=== PATIENT | male | born 1990 | race Caucasian/White ===

== ENCOUNTER 2020-12-17 08:40 | Outpatient (REF) | payer OTHER, SELFPAY ==
[2020-12-17 12:15] LABS: Alanine Aminotransferase 53 U/L (0-40); Albumin Level 4.7 g/dL (3.5-5.0); Alkaline Phosphatase 85 U/L (39-117); Anion Gap 12 (12-20); Aspartate Amino Transferase 23 U/L (5-37); Bilirubin Total 0.7 mg/dL (0.0-1.0); Blood Urea Nitrogen 21 mg/dL (9-16); Calcium 9.6 mg/dL (8.4-10.2); Carbon Dioxide 28 mmol/L (22-29); Chloride 106 mmol/L (96-108); Cholesterol 216 mg/dL; Estimated Glomerular Filt Rate > 60; Glucose Fasting 88 mg/dL (60-99); HDL Cholesterol 53 mg/dL; LDL Cholesterol Calculated 146 mg/dl; Potassium 4.4 mmol/L (3.3-5.1); Sodium 142 mmol/L (135-145); Total Protein 7.4 g/dL (6.5-8.0); Triglycerides 87 mg/dL
[2020-12-17 12:25] LABS: TSH reflex Free T4 0.41 uIU/mL (0.32-4.0)
== END 2020-12-17 08:41 | disposition home or self-care (01) ==
LOC: HO.HMGCLDS 08:40
PROVIDERS: PCP Nurse Practitioner Family; Visit Provider Nurse Practitioner Family
DX: Z00.00 Encounter for general adult medical examination without abnormal findings (principal); R74.8 Abnormal levels of other serum enzymes
CPT/HCPCS: 36415; 80053; 80061; 84443

== ENCOUNTER 2021-12-22 08:45 | Outpatient (REF) | payer OTHER, SELFPAY ==
[2021-12-22 11:29] LABS: MANUAL DIFF FLAG NO
[2021-12-22 11:30] LABS: Appearance Urine CLEAR; Color Urine YELLOW; Glucose Urine UA NEG (NEG); Leukocyte Esterase Urine NEG (NEG); Nitrite Urine NEG (NEG); PH 7.5 (5.0-8.0); Specific Gravity - Urine 1.015 (1.005-1.025); Urine Blood NEG (NEG); Urine Ketones NEG (NEG); Urine Protein NEG (NEG-TRACE)
[2021-12-22 11:41] LABS: Basophils Percent Auto 0.8 % (0-2); Eosinophils Absolute Auto 0.1 X10*3/uL (0.0-0.4); Eosinophils Percent Auto 1.4 % (0-4); Hematocrit 45.9 % (42.0-52.0); Hemoglobin 15.3 g/dl (14.0-18.0); Imm Gran Abs Auto 0.02 X10*3/uL (0.00-0.03); Imm Gran Pct Auto 0.4 % (0.0-0.4); Lymphocytes Absolute Auto 1.5 X10*3/uL (1.2-4.9); Mean Corpuscular HGB Conc 33.3 g/dl (31.0-36.0); Mean Corpuscular Hemoglobin 29.2 pg (27.0-33.0); Mean Corpuscular Volume 87.6 fL (80.0-98.0); Mean Platelet Volume 12.1 fL (9.4-12.4); Monocytes Absolute Auto 0.5 X10*3/uL (0.1-1.2); Monocytes Percent Auto 10.3 % (2-11); Neutrophils Absolute Auto 2.9 x10*3/uL (2.0-8.3); Neutrophils Percent Auto 57.1 % (45-73); Platelet Count 249 X10*3/uL (160-400); Red Blood Count 5.24 X10*6/uL (4.60-5.80); Red Cell Distribution Width 12.5 % (11.0-16.0)
[2021-12-22 12:18] LABS: Alanine Aminotransferase 91 U/L (0-40); Albumin Level 4.8 g/dL (3.5-5.0); Alkaline Phosphatase 83 U/L (39-117); Anion Gap 11 (12-20); Aspartate Amino Transferase 40 U/L (5-37); Bilirubin Total 0.6 mg/dL (0.0-1.0); Blood Urea Nitrogen 17 mg/dL (9-16); Calcium 9.8 mg/dL (8.4-10.2); Carbon Dioxide 28 mmol/L (22-29); Chloride 106 mmol/L (96-108); Cholesterol 230 mg/dL; Estimated Glomerular Filt Rate > 60; Glucose Fasting 102 mg/dL (60-99); HDL Cholesterol 55 mg/dL; LDL Cholesterol Calculated 158 mg/dl; Potassium 4.6 mmol/L (3.3-5.1); Sodium 140 mmol/L (135-145); Total Protein 7.4 g/dL (6.5-8.0); Triglycerides 88 mg/dL
[2021-12-22 12:29] LABS: TSH reflex Free T4 0.08 uIU/mL (0.32-4.0)
== END 2021-12-22 08:46 | disposition home or self-care (01) ==
LOC: HO.HMGCLDS 08:45
PROVIDERS: PCP Nurse Practitioner Family; Visit Provider Nurse Practitioner Family
DX: Z00.00 Encounter for general adult medical examination without abnormal findings (principal)
CPT/HCPCS: 36415; 80053; 80061; 81003; 84439; 84443; 85025

== ENCOUNTER 2022-03-14 14:16 | Outpatient (REF) | payer OTHER, SELFPAY ==
--- NOTE | ~2022-03-14 | XR_ITS ---
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 M46.1 - Sacroiliitis, not elsewhere classified COMPARISON: None TECHNIQUE: The lumbar spine is imaged in 5 views: AP, lateral, bilateral oblique, and lateral view coned to lumbosacral junction. The pelvis is imaged in AP view. FINDINGS: Lumbar spine: Normal lumbar segmentation with 5 nonrib-bearing lumbar vertebrae of normal height. There is mild straightening of the lumbar lordosis. No lumbar vertebral compression, spondylolisthesis, spondylolysis, or destructive process. There is mild disc narrowing L4-L5 and L5-S1. No erosive changes. The visualized sacrum is unremarkable. Pelvis: No fracture or dislocation or destructive process. Normal bony mineralization. The SI joints appear symmetric. No erosive change or subchondral sclerosis. Pubis and hips are unremarkable. There are scattered calcified phleboliths in the pelvis. Bowel gas unremarkable. XR/XR pelvis 1-2V IMPRESSION: -Mild disc narrowing L4-L5 and L5-S1. -Unremarkable pelvis.
--- NOTE | ~2022-03-14 | XR_ITS ---
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 M46.1 - Sacroiliitis, not elsewhere classified COMPARISON: None TECHNIQUE: The lumbar spine is imaged in 5 views: AP, lateral, bilateral oblique, and lateral view coned to lumbosacral junction. The pelvis is imaged in AP view. FINDINGS: Lumbar spine: Normal lumbar segmentation with 5 nonrib-bearing lumbar vertebrae of normal height. There is mild straightening of the lumbar lordosis. No lumbar vertebral compression, spondylolisthesis, spondylolysis, or destructive process. There is mild disc narrowing L4-L5 and L5-S1. No erosive changes. The visualized sacrum is unremarkable. Pelvis: No fracture or dislocation or destructive process. Normal bony mineralization. The SI joints appear symmetric. No erosive change or subchondral sclerosis. Pubis and hips are unremarkable. There are scattered calcified phleboliths in the pelvis. Bowel gas unremarkable. XR/XR lumbar spine 4V min IMPRESSION: -Mild disc narrowing L4-L5 and L5-S1. -Unremarkable pelvis.
== END 2022-03-14 14:17 | disposition home or self-care (01) ==
LOC: HO.XRAY 14:16
PROVIDERS: PCP Nurse Practitioner Family; Visit Provider Anesthesiology
DX: M43.06 Spondylolysis, lumbar region (principal); M46.1 Sacroiliitis, not elsewhere classified
CPT/HCPCS: 72110; 72170

== ENCOUNTER 2022-09-16 05:19 | Emergency (ER) | payer OTHER, SELFPAY ==
--- NOTE | ~2022-09-16 | XR_ITS ---
EXAMINATION: XR FINGER, LEFT CLINICAL INFORMATION: Third finger post reduction. COMPARISON: 09/16/2022 TECHNIQUE: Three views of the left hand third digit. FINDINGS: Reduction of the prior proximal interphalangeal joint dislocation with appropriate alignment. There is a 0.2 cm ossific fragment along the palmar aspect of the base of the middle phalanx, with uncertain donor site. Additional tiny ossific density noted at the dorsal aspect of the joint as well. Prominent soft tissue swelling. XR/XR finger LT min 2V IMPRESSION: 1. Reduction of the prior proximal interphalangeal joint dislocation with appropriate alignment. 2. Small ossific fragments at the palmar and dorsal aspect of the base of the middle phalanx.
--- NOTE | ~2022-09-16 | XR_ITS ---
EXAMINATION: XR HAND, LEFT CLINICAL INFORMATION: Fall. Finger dislocation. COMPARISON: None available. TECHNIQUE: PA, lateral, and oblique views of the left hand. FINDINGS: Dislocation at the third digit proximal interphalangeal joint. Dorsal positioning of the middle phalanx in relation to the proximal phalanx. There could be a small associated fracture. Soft tissue swelling present. Remaining joint spaces are maintained. XR/XR hand LT min 3V IMPRESSION: Dislocation at the third digit proximal interphalangeal joint. There could be a small associated fracture.
[2022-09-16 05:33] VITALS: BP 147/84; PULSE 56; RESP 18; TEMP 36.4; O2SAT 99; BMI 28.8
--- NOTE | 2022-09-16 05:50 | ED.EXTPRO ---
HPI - Extremity Problem General Chief complaint: Extremity Injury, Upper Stated complaint: Broke left Middle Finger? Time Seen by Provider: 09/16/22 05:50 Source: patient Mode of arrival: ambulatory Limitations: no limitations History of Present Illness HPI Narrative: Patient complaining of pain left middle finger with obvious deformity after his left on stairs and tried to catch himself with his left hand no other injury Related Data Previous Rx's Medication Instructions Recorded levothyroxine 175 mcg tablet 175 mcg PO DAILY #90 tabs 09/13/22 ibuprofen 600 mg tablet 600 mg PO Q6H PRN fever or pain 09/16/22 #30 tabs Allergies Allergy/AdvReac Type Severity Reaction Status Date / Time No Known Allergies Allergy Verified 09/16/22 05:49 [No Known Allergies*] Review of Systems Review of Systems: Yes all other systems are reviewed and are negative PMFSH Past Medical History Medical History Hypothyroid Tinea versicolor Surgical History H/O thyroidectomy History of tonsillectomy Family History Family History Mother COPD (chronic obstructive pulmonary disease) Smoker Alcoholic Bipolar 1 disorder Substance use disorder Mental health disorder Father No problems noted. Social History Social History Housing: House Alcohol intake: current Alcohol intake frequency: a few times a month Patient Tobacco Use Status: Never used Tobacco Smoked in Last 30 Days: No e-Cigarette/Vaping Use: Never Used Second Hand Smoke Exposure: No Use of substances other than those prescribed or required for medical reasons: No Advance Directives: No Advance Directives Information Provided: Yes service: No Current occupational status: employed Current occupation: teacher Current occupational exposures/hazards: Yes Cognitive needs: No Hearing needs: No Vision needs: No Physical Exam Vital Signs: Vital Signs: Last Vital Signs Temp 97.6 F 09/16/22 05:33 Pulse 56 09/16/22 05:33 Resp 18 09/16/22 05:33 BP 147/84 H 09/16/22 05:33 Pulse Ox 99 09/16/22 05:33 O2 Del Method Room Air 09/16/22 05:33 BMI result Body Mass Index 28.8 Extrem: Hand/finger images: 1. Obvious deformity deformity of dislocation neurovascular intact Medications Administered Discontinued Medications Generic Name Dose Route Start Last Admin Trade Name Freq PRN Reason Stop Dose Admin Ibuprofen 600 mg 09/16/22 05:53 09/16/22 05:59 Ibuprofen 600 Mg Tablet PO 09/16/22 05:54 600 mg ONCE ONE Administration Lidocaine HCl 2 ml 09/16/22 06:25 09/16/22 06:40 Lidocaine Hcl 1 % Mpf 2 Ml Vial INFILTRATI 09/16/22 06:26 2 ml ONCE ONE Administration Procedures Orthopedic Joint Reduction Joint #1: Time Out Performed: Yes Joint Reduction Location: finger (3rd finger) Analgesia: hematoma block Local Anesthesia: lidocaine 1% Amount of anesthesic used (mL): 2 Technique used: traction/counter-traction Post-reduction neuro exam: intact Post-reduction vascular: intact Post Reduction X-Ray Obtained: Yes Post Reduction X-Ray Results: reduced Splint Applied: Yes Patient Tolerated Procedure: well Discharge Plan Discharge Clinical Impression: Finger dislocation Patient Disposition: Home, Self-Care Instructions: Finger Dislocation (ED) Additional Instructions: wear the finger splint for support till heals completety Prescriptions: New ibuprofen 600 mg tablet 600 mg PO Q6H PRN (Reason: fever or pain) Qty: 30 0RF No Action levothyroxine 175 mcg tablet 175 mcg PO DAILY Qty: 90 1RF
[2022-09-16] MEDS: Ibuprofen 600 MG TABLET PO (05:59)
[2022-09-16] MEDS: Lidocaine HCl 1 % MPF 2 ML VIAL INFILTRATI (06:40)
--- NOTE | 2022-09-16 07:08 | PC.NURSE ---
Pt. finger relocated by MD. Pt. tolerated procedure well. Pt. subsequently splinted and wrapped and d/c'd to home.
== END 2022-09-16 07:10 | disposition home or self-care (01) ==
PROVIDERS: Emergency Provider Internal Medicine
DX: S63.283A Dislocation of proximal interphalangeal joint of left middle finger, initial encounter (principal); W10.8XXA Fall (on) (from) other stairs and steps, initial encounter; Y93.9 Activity, unspecified; Y92.018 Other place in single-family (private) house as the place of occurrence of the external cause; Y99.9 Unspecified external cause status
CPT/HCPCS: 26775; 29130; 73130; 73140; 99284

== ENCOUNTER 2022-12-22 08:24 | Outpatient (REF) | payer OTHER, SELFPAY | END 2022-12-22 08:25 | disposition home or self-care (01) | LOC: HO.HMGCLDS 08:24 | PROVIDERS: PCP Nurse Practitioner Family; Visit Provider Nurse Practitioner Family | DX: E89.0 Postprocedural hypothyroidism (principal); R78.4 Finding of other drugs of addictive potential in blood | CPT/HCPCS: 36415; 84443; 86704; 86706; 86709; 86803; 87340 ==

== ENCOUNTER 2023-04-28 08:45 | Outpatient (REF) | payer BC, SELFPAY ==
[2023-04-28 11:22] LABS: Appearance Urine Clear; Color Urine Yellow; Glucose Urine UA Negative (Negative); Leukocyte Esterase Urine Negative (Negative); Nitrite Urine Negative (Negative); Specific Gravity - Urine 1.025 (1.005-1.025); Urine Blood Negative (Negative); Urine Ketones Negative (Negative); Urine Protein Negative (Neg-Trace)
[2023-04-28 11:27] LABS: MANUAL DIFF FLAG NO
[2023-04-28 11:37] LABS: Basophils Percent Auto 0.8 % (0-2); Eosinophils Absolute Auto 0.1 X10*3/uL (0.0-0.4); Eosinophils Percent Auto 1.4 % (0-4); Hematocrit 46.1 % (42.0-52.0); Hemoglobin 15.8 g/dl (14.0-18.0); Imm Gran Abs Auto 0.03 X10*3/uL (0.00-0.03); Imm Gran Pct Auto 0.6 % (0.0-0.4); Lymphocytes Absolute Auto 1.7 X10*3/uL (1.2-4.9); Lymphocytes Percent Auto 35.3 % (20-40); Mean Corpuscular HGB Conc 34.3 g/dl (31.0-36.0); Mean Corpuscular Hemoglobin 29.5 pg (27.0-33.0); Mean Platelet Volume 11.7 fL (9.4-12.4); Monocytes Absolute Auto 0.5 X10*3/uL (0.1-1.2); Monocytes Percent Auto 10.2 % (2-11); Neutrophils Absolute Auto 2.5 x10*3/uL (2.0-8.3); Neutrophils Percent Auto 51.7 % (45-73); Platelet Count 256 X10*3/uL (160-400); Red Blood Count 5.36 X10*6/uL (4.60-5.80); Red Cell Distribution Width 12.1 % (11.0-16.0); White Blood Count 4.9 X10*3/uL (4.8-10.8)
[2023-04-28 12:27] LABS: Alanine Aminotransferase 67 U/L (0-40); Albumin Level 4.5 g/dL (3.5-5.0); Alkaline Phosphatase 69 U/L (39-117); Anion Gap 9 (12-20); Aspartate Amino Transferase 33 U/L (5-37); Bilirubin Total 0.6 mg/dL (0.0-1.0); Blood Urea Nitrogen 20 mg/dL (9-16); Calcium 9.5 mg/dL (8.4-10.2); Carbon Dioxide 30 mmol/L (22-29); Chloride 105 mmol/L (96-108); Cholesterol 235 mg/dL (<200); Estimated Glomerular Filt Rate > 60; Glucose Fasting 88 mg/dL (60-99); HDL Cholesterol 47 mg/dL (>40); LDL Cholesterol Calculated 170 mg/dL (<100); Potassium 4.3 mmol/L (3.3-5.1); Sodium 140 mmol/L (135-145); Total Protein 7.2 g/dL (6.5-8.0); Triglycerides 94 mg/dL (<150)
[2023-04-28 13:01] LABS: Free T4 (Free Thyroxine) 1.05 ng/dL (0.71-1.85)
== END 2023-04-28 08:46 | disposition home or self-care (01) ==
LOC: HO.HMGCLDS 08:45
PROVIDERS: PCP Nurse Practitioner Family; Visit Provider Nurse Practitioner Family
DX: Z00.00 Encounter for general adult medical examination without abnormal findings (principal); E03.9 Hypothyroidism, unspecified; R74.8 Abnormal levels of other serum enzymes; Z13.220 Encounter for screening for lipoid disorders; Z13.0 Encounter for screening for diseases of the blood and blood-forming organs and certain disorders involving the immune mechanism
CPT/HCPCS: 36415; 80053; 80061; 81003; 84439; 84443; 85025

== ENCOUNTER 2023-08-04 08:51 | Outpatient (AMB) | payer BC, SELFPAY ==
--- NOTE | 2023-08-04 08:56 | AM.OFFWIN_ITS ---
Intake Vital Signs 08/04/23 08:57 Height 5 ft 9 in Weight 214 lb BMI 31.6 BP 138/78 Blood Pressure Location Lt brachial Position Sitting Pulse 70 Pulse Source Pulse Oximeter Temp 99.7 F Temp Source Oral Pulse Oximetry (%) 97 Intake Visit Reasons: EP Sore throat, Headache Intake Note: pt is here for c.o sore throat, headache, body aches, since monday Patient Tobacco Use Status: Never used Tobacco Allergies No Known Allergies [No Known Allergies*] Allergy (Verified 08/04/23 08:58) Do you need a note to return to daycare/school/sports/work: Yes HPI HPI Comments 2 History of Present Illness Details 32 y/o male patient who presents to walk in clinic with c/o URI symptoms since Monday. Reports fevers at home. Denies Nausea and vomiting. [facility] Medical History (Updated 05/01/23 @ 15:29 by Christine Nava MD) Hypothyroid Tinea versicolor Surgical History History of tonsillectomy H/O thyroidectomy Family History Mother COPD (chronic obstructive pulmonary disease) Smoker Alcoholic Bipolar 1 disorder Substance use disorder Mental health disorder Father No problems noted. Social History Housing: House Alcohol intake: current Alcohol intake frequency: a few times a month Patient Tobacco Use Status: Never used Tobacco e-Cigarette/Vaping Use: Never Used Second Hand Smoke Exposure: No service: No Current occupational status: employed Current occupation: teacher Current occupational exposures/hazards: Yes Cognitive needs: No Hearing needs: No Vision needs: No Review of Systems Const All systems reviewed & are unremarkable except as noted in HPI and below Physical Exam Vital Signs: Last Vital Signs Temp 99.7 F 08/04/23 08:57 Pulse 70 08/04/23 08:57 BP 138/78 08/04/23 08:57 Pulse Ox 97 08/04/23 08:57 BMI result Body Mass Index 31.6 Const General: comfortable and no acute distress HEENT Head: Yes normocephalic Ears: external ears normal and TM's normal bilaterally General nose exam: Normal nasal mucous membranes and turbinates present Face and sinus: Yes sinuses nontender Mouth: oropharynx normal and moist mucous membranes Throat: Yes tonsils normal and Yes uvula midline Resp Effort & Inspection: normal respiratory effort Auscultation: clear to auscultation bilaterally Cardio Rate: regular rate Rhythm: regular rhythm Results AMB Rapid Strep AMB Rapid Strep Negative Last Edit by Guilherme Weston CMA on 08/04/23 09 :08 Results Reviewed Results Reviewed: Laboratory Last Values Strep Scn Rapid Clinic Negative 08/04/23 09:08 Assessment & Plan Assessment & Plan (1) Acute pharyngitis: Code(s): J02.9 - Acute pharyngitis, unspecified Qualifiers: Pharyngitis/tonsillitis etiology: other specified organisms Qualified Code(s): J02.8 - Acute pharyngitis due to other specified organisms Plan: - Rest - Warm fluids - Acetaminophen for pain relief. - OTC cold/cough remedies. - Rapid Strept Negative - RTC if symptoms worse. Orders: Orders AMB Rapid Strep Screen Today Z13.9 - Encounter for screening, unspecified SARS-CoV2/FLU/RSV Today J02.8 - Acute pharyngitis due to other specified organisms Coding Level of Care Code Est Pt Level 3 (85772) Diagnoses Acute pharyngitis due to other specified organisms J02.8 Pharyngitis/tonsillitis etiology: other specified organisms Time Spent (min) 15
[2023-08-04 08:57] VITALS: BP 138/78; PULSE 70; TEMP 37.6; O2SAT 97; BMI 31.6
== END 2023-08-04 09:13 | disposition home or self-care (01) ==
PROVIDERS: PCP Nurse Practitioner Family; Visit Provider Nurse Practitioner Family
DX: J02.8 Acute pharyngitis due to other specified organisms (principal)
CPT/HCPCS: 87880; 99213

== ENCOUNTER 2023-08-04 12:24 | Outpatient (REF) | payer BC, SELFPAY ==
[2023-08-04 13:10] LABS: Influenza A PCR NEGATIVE (Negative); Influenza B PCR NEGATIVE (Negative); Resp Syncy Virus RNA Qual PCR NEGATIVE (Negative); SARS COV2 PCR INHOUSE NEGATIVE (Negative)
== END 2023-08-04 12:25 | disposition home or self-care (01) ==
LOC: HO.LNP 12:24
PROVIDERS: Visit Provider Nurse Practitioner Family
DX: Z11.52 Encounter for screening for COVID-19 (principal); Z20.822 Contact with and (suspected) exposure to COVID-19; J02.8 Acute pharyngitis due to other specified organisms
CPT/HCPCS: 0241U

== ENCOUNTER 2024-01-01 10:17 | Outpatient (AMB) | payer BC, SELFPAY ==
--- NOTE | 2024-01-01 10:25 | MHC.PC.OV ---
Vital Signs 01/01/24 10:30 Height 5 ft 9 in Weight 226 lb BMI 33.4 BP 116/74 Blood Pressure Location Rt brachial Position Sitting Pulse 62 Pulse Source Pulse Oximeter Pulse Oximetry (%) 98 Oxygen Delivery Method Room Air Intake Visit Reasons: PE Intake Note: Patient here for physical exam. Allergies No Known Allergies [No Known Allergies*] Allergy (Verified 01/01/24 10:31) Tobacco use date assessed: 01/01/24 Dental Screening Dental Screen Date: 01/01/24 Did you have a dental visit in the last 12 months?: Yes Did you have a dental problem in the last 6 months where you did not have access to dental care?: No Was dental information given to patient?: Patient has dentist HPI PE HPI Details pt is here for a PE. Denies any concerns or questions PFSH Medical History Hypothyroid Tinea versicolor Surgical History History of tonsillectomy H/O thyroidectomy Family History Mother COPD (chronic obstructive pulmonary disease) Smoker Alcoholic Bipolar 1 disorder Substance use disorder Mental health disorder Father No problems noted. Social History Housing: House Alcohol intake: current Alcohol intake frequency: a few times a month Patient Tobacco Use Status: Never used Tobacco e-Cigarette/Vaping Use: Never Used Second Hand Smoke Exposure: No service: No Current occupational status: employed Current occupation: teacher Current occupational exposures/hazards: Yes Cognitive needs: No Hearing needs: No Vision needs: No Questionnaire PHQ-9 Over the last 2 weeks, how often have you been bothered by any of the following problems? 1. Little interest or pleasure in doing things: not at all 2. Feeling down, depressed, or hopeless: not at all 3. Trouble falling or staying asleep, or sleeping too much: not at all 4. Feeling tired or having little energy: not at all 5. Poor appetite or overeating: not at all 6. Feeling bad about yourself - or that you are a failure or have let yourself or your family down: not at all 7. Trouble concentrating on things, such as reading the newspaper or watching television: not at all 8. Moving or speaking so slowly that other people could have noticed. Or the opposite - being so fidgety or restless that you have been moving around a lot more than usual: not at all 9. Thoughts that you would be better off or of hurting yourself in some way: not at all Total score: 0 Depression Screening Interpretation: Negative Depression Screening Done: Yes 21380 - PHQ-9 Billing: Yes Source: Developed by Drs. Nii Johnson, Nalini Dinh, Dionisio Arias and colleagues, with an educational bennett from [employer]. Thrive Questionnaire Date Thrive assessed: 01/01/24 I am a: Patient What is your living situation today?: I have a steady place to live Within the past 12 months, did the food you bought not last and you didn't have the money to get more?: Never true Within the past 12 months, did you worry whether your food would run out before you got money to buy more?: Never true Do you have trouble paying for medicines?: No Do you have trouble getting transportation to medical appointments?: No Do you have trouble paying your heating and electricity bill?: No Do you have trouble taking care of your child, family member or friend?: No Do you have trouble with day-to-day activities such as bathing, preparing meals, shopping, managing finances, etc.?: No Are you currently unemployed and looking for a job?: No Are you interested in more education?: No Please select the resources that you would like help with: Housing/Jail Currently or been in a relationship where the following occur: No concerns reported THRIVE Score: 0 AUDIT C Alcohol Use Questionnaire (AUDIT-C) 1. How often do you have a drink containing alcohol?: 2-4 times a month 2. How many drinks containing alcohol do you have on a typical day when you are drinking?: 1 or 2 3. How often do you have six or more drinks on one occasion?: Less than monthly Total Score: 3 NKECHI-7 AMB Questionnaire NKECHI-7 Date NKECHI - 7 assessed: 01/01/24 Feeling nervous, anxious, or on edge: 0 = Not at all Not being able to stop or control worryin = Not at all Worrying too much about different things: 0 = Not at all Trouble relaxin = Not at all Being so restless that it is hard to sit still: 0 = Not at all Becoming easily annoyed or irritable: 0 = Not at all Feeling afraid as if something awful might happen: 0 = Not at all Total NKECHI-7 score (0-4 normal; 5-9 mild; 10-14 moderate; 15-21 severe): 0 Source: Developed by Drs. Nii Johnson, Nalini Dinh, Dionisio Arias and colleagues, with an educational bennett from [employer]. NKECHI-7 Assessment Billing NKECHI-7 Assessment Tool: NKECHI-7 Assessment 08212 Review of Systems Const Denies chills and Denies fever(s) Eyes Denies blurry vision ENT Denies vertigo, Denies dizziness and Denies sore throat Card Denies chest pain at rest, Denies chest pain with activity, Denies diaphoresis, Denies dyspnea and Denies dyspnea on exertion Resp Denies cough, Denies dyspnea, Denies dyspnea on exertion and Denies wheezing GI Denies abdominal pain, Denies melena, Denies hematochezia, Denies constipation, Denies diarrhea and Denies loose stools Denies hematuria Musc Denies numbness and Denies tingling Skin/Breast Denies lesions Neuro Denies vertigo, Denies dizziness, Denies numbness and Denies tingling Psych Denies anxiety, Denies depression, Denies homicidal ideation, Denies suicidal ideation and Denies other (substance abuse) Aller/Immun Denies wheezing Physical exam (Primary Care) Vital Signs: Last Vital Signs Pulse 62 01/01/24 10:30 BP 116/74 01/01/24 10:30 Pulse Ox 98 01/01/24 10:30 Oxygen Delivery Method Room Air 01/01/24 10:30 BMI result Body Mass Index 33.4 Tobacco/Smoking Status: Tobacco use Status Tobacco use date assessed 01/01/24 01/01/24 10:33 Patient Tobacco Use Status Never used Tobacco 01/01/24 10:27 e-Cigarette/Vaping Use Never Used 01/01/24 10:27 PHQ-9: PHQ-9 Score PHQ-9: Total score 0 01/01/24 10:51 Depression Screening Interpretation: Negative Thrive Assessment: Date of Thrive Assessment Date Thrive assessed 01/01/24 01/01/24 10:27 Currently or been in a relationship where the following occur: No concerns reported Const General: cooperative Nutritional Appearance: well nourished Orientation/consciousness: patient oriented x3 HENMT Head: Yes normal to inspection, Yes normocephalic and Yes atraumatic Ears: TM normal on the right and TM normal on the left Eyes General: appearance normal, both eyes and all related structures Alignment and Position: alignment normal and position normal Neck Neck: Yes normal visual inspection and Yes no lymphadenopathy Resp Effort & Inspection: normal respiratory effort Auscultation: clear to auscultation bilaterally Cardio Rate: regular rate Rhythm: regular rhythm Heart sounds: S1 normal heart sound present, S2 normal heart sound present and no murmurs GI Palpation (GI): Soft to palpation and nontender Auscultation: normal bowel sounds Male General Exam: Yes normal external exam Penis: normal penis Scrotum: scrotum normal, testes descended bilaterally and no inguinal hernias Testes: no testicular mass Skin Rashes: no rashes Neuro General: patient oriented x3, moves all extremities, no focal motor deficits and deep tendon reflexes 2+ bilaterally Romberg Test: Negative Extrem Right lower extremity: no edema Left lower extremity: no edema Psych Affect: normal affect Attitude: cooperative Thought process: Normal thought process present Assessment and Plan Assessment & Plan (1) Encounter for routine adult physical exam with abnormal findings: Code(s): Z. - Encounter for general adult medical examination with abnormal findings Plan 1 year follow up Orders: Orders Comprehensive [place]. Panel Fast Today Z. - Encounter for general adult medical examination with abnormal findings TSH reflex Free T4 Today Z. - Encounter for general adult medical examination with abnormal findings UA CC w/rflx Micro + Cult Today Z. - Encounter for general adult medical examination with abnormal findings Complete Blood Count Auto Diff Today Z. - Encounter for general adult medical examination with abnormal findings Lipid Panel Today Z00. - Encounter for general adult medical examination with abnormal findings Coding Level of Care Code Est Pt Prev Care 18-39y(71351) Diagnoses Encounter for routine adult physical exam with abnormal findings Z. Additional Codes NKECHI-7 Assessment Billing - NKECHI-7 Assessment Tool: NKECHI-7 Assessment 12126 ([id number])
[2024-01-01 10:30] VITALS: BP 116/74; PULSE 62; O2SAT 98; BMI 33.4
== END 2024-01-01 13:40 | disposition home or self-care (01) ==
PROVIDERS: PCP Nurse Practitioner Family; Visit Provider Nurse Practitioner Family
DX: Z00.00 Encounter for general adult medical examination without abnormal findings (principal)
CPT/HCPCS: 99395

== ENCOUNTER 2024-06-13 09:09 | Outpatient (REF) | payer BC, SELFPAY ==
[2024-06-13 10:04] LABS: MANUAL DIFF FLAG NO
[2024-06-13 10:08] LABS: Basophils Percent Auto 0.3 % (0-2); Eosinophils Absolute Auto 0.1 X10*3/uL (0.0-0.4); Hematocrit 44.5 % (42.0-52.0); Hemoglobin 15.1 g/dl (14.0-18.0); Imm Gran Abs Auto 0.02 X10*3/uL (0.00-0.03); Imm Gran Pct Auto 0.3 % (0.0-0.4); Lymphocytes Absolute Auto 1.7 X10*3/uL (1.2-4.9); Lymphocytes Percent Auto 27.1 % (20-40); Mean Corpuscular HGB Conc 33.9 g/dl (31.0-36.0); Mean Corpuscular Hemoglobin 29.7 pg (27.0-33.0); Mean Corpuscular Volume 87.4 fL (80.0-98.0); Mean Platelet Volume 11.6 fL (9.4-12.4); Monocytes Absolute Auto 0.5 X10*3/uL (0.1-1.2); Monocytes Percent Auto 8.8 % (2-11); Neutrophils Absolute Auto 3.8 x10*3/uL (2.0-8.3); Neutrophils Percent Auto 62.5 % (45-73); Platelet Count 240 X10*3/uL (160-400); Red Blood Count 5.09 X10*6/uL (4.60-5.80); Red Cell Distribution Width 12.4 % (11.0-16.0); White Blood Count 6.1 X10*3/uL (4.8-10.8)
[2024-06-13 10:16] LABS: Appearance Urine Clear; Color Urine Yellow; Glucose Urine UA Negative (Negative); Leukocyte Esterase Urine Negative (Negative); Nitrite Urine Negative (Negative); Urine Blood Negative (Negative); Urine Ketones Negative (Negative); Urine Protein Negative (Neg-Trace)
[2024-06-13 10:59] LABS: Alanine Aminotransferase 44 U/L (0-40); Albumin Level 4.6 g/dL (3.5-5.0); Anion Gap 12 (12-20); Aspartate Amino Transferase 25 U/L (5-37); Bilirubin Total 0.5 mg/dL (0.0-1.0); Blood Urea Nitrogen 18 mg/dL (9-16); Calcium 9.6 mg/dL (8.4-10.2); Carbon Dioxide 29 mmol/L (22-29); Chloride 106 mmol/L (96-108); Cholesterol 179 mg/dL (<200); Estimated Glomerular Filt Rate > 60; Glucose Fasting 89 mg/dL (60-99); HDL Cholesterol 44 mg/dL (>40); LDL Cholesterol Calculated 123 mg/dL (<100); Potassium 4.1 mmol/L (3.3-5.1); Sodium 143 mmol/L (135-145); Total Protein 7.1 g/dL (6.5-8.0); Triglycerides 63 mg/dL (<150)
[2024-06-13 11:21] LABS: TSH reflex Free T4 0.43 uIU/mL (0.32-4.0)
[2024-06-13 11:55] LABS: Alkaline Phosphatase 64 U/L (39-117)
== END 2024-06-13 09:10 | disposition home or self-care (01) ==
LOC: HO.HMGCLDS 09:09
PROVIDERS: PCP Nurse Practitioner Family; Visit Provider Nurse Practitioner Family
DX: Z00.01 Encounter for general adult medical examination with abnormal findings (principal)
CPT/HCPCS: 36415; 80053; 80061; 81003; 84443; 85025

== ENCOUNTER 2024-06-27 08:03 | Outpatient (AMB) | payer BC, SELFPAY ==
--- NOTE | 2024-06-27 08:05 | A.OFFVIS_ITS ---
Intake Visit Reasons: Vasectomy consult Intake Note: New Patient presents for initial visit for vasectomy consult * Children: 3; Expected :0 Urology Medications: none Blood Thinner: none Examiner Of Currency Required: No Accompanied by: Self / Same As Patient Allergies No Known Allergies [No Known Allergies*] Allergy (Verified 06/27/24 09:14) Medication List - Last Reconciled 06/27/24 by HERIBERTO Busby levothyroxine 175 mcg PO DAILY HPI Comments Details: Marcus is a pleasant 33-year-old male patient of Dr. Machado. He presents to the office today for - vasectomy evaluation Vasectomy evaluation The patient presents for vasectomy consultation.? He is currently He has fathered -?3 children, with a single partner The youngest child is -3-month-old His partner is aware and permissive for a vasectomy Current form of control is hormones Current employment is teacher The vasectomy may be complicated due to a history of bilateral varicoceles. Patient education has been provided via [employer] video, via printed information, risks of failure, recovery time, bruising and potential pain syndrome have been stressed Discussion today focused on the presence of vasectomy and the risks, benefits and alternatives that are available. Vasectomy as intended as a permanent form of control. Printed information and literature was provided to the patient. Overall there is a one in 2500 failure rate. This can occur at any time after vasectomy. Risks were discussed highlighting hematoma, spermatocele, epididymal congestion, development of sperm antibodies, and development of chronic pain estimated between 1-5%. The procedure was reviewed in detail. Anatomical diagrams of the male genitalia were used to explain the location of the vas deferens. The vas deferens will be transected, the proximal end will be cauterized, a metal clip would be applied to separate the 2 vas deferens ends. It was explained the procedure will be done in the office and takes approximately 10-15 minutes. Less common problems that arise with vasectomy include hematoma, bleeding, allergic reaction to anesthetic, epididymal infection, epididymal congestion, scrotal discomfort, spermatic leak, spermatic granuloma and the possibility of antisperm antibodies. He understands these risks and wishes to proceed. Consent was signed at the office today. He also understands that it takes 12 weeks for sperm to fully clear the system. He will need to provide a semen sample at 12 weeks and if this is not clear a 2nd sample at 16 weeks. Medical clearance to stop using protection will only be provided if he satisfies published criteria for sperm clearance. [facility] Medical History Hypothyroid Tinea versicolor Surgical History History of tonsillectomy H/O thyroidectomy Family History Mother COPD (chronic obstructive pulmonary disease) Smoker Alcoholic Bipolar 1 disorder Substance use disorder Mental health disorder Father No problems noted. Social History Housing: House Alcohol intake: current Alcohol intake frequency: a few times a month Patient Tobacco Use Status: Never used Tobacco e-Cigarette/Vaping Use: Never Used Second Hand Smoke Exposure: No service: No Current occupational status: employed Current occupation: teacher Current occupational exposures/hazards: Yes Cognitive needs: No Hearing needs: No Vision needs: No Review of Systems Const All systems reviewed & are unremarkable except as noted in HPI and below Physical Exam Const General: cooperative, healthy appearing, comfortable, no acute distress, well developed, alert and awake Orientation/consciousness: patient oriented x3 Limitations: no limitations HEENT Head: Yes normal to inspection, Yes normocephalic and Yes atraumatic Ears: hearing grossly normal bilaterally Eyes General: appearance normal, both eyes and all related structures Neck Neck: Yes normal visual inspection and Yes trachea midline Chest Chest palpation & inspection: normal inspection of the chest Resp Effort & Inspection: normal respiratory effort and able to speak in complete sentences Cardio Rate: regular rate GI Inspection: Yes normal to inspection General: Yes no CVA tenderness Back/Spine/Pelvis Back: no CVA tenderness Skin General skin exam: no rashes or lesions noted Neuro General: patient oriented x3 Extrem General: Yes normal to inspection Psych Appearance: grossly normal and well kempt Mental Status: mental status grossly normal Speech and movement: Normal speech and movement present and Clear speech present Affect: normal affect Attitude: cooperative Thought process: Normal thought process present Thought content: Normal thought content present Insight: Fair insight present (Psych) Judgement: Fair judgement present (Psych) Assessment & Plan Assessment & Plan (1) Vasectomy evaluation: Code(s): Z30.09 - Encounter for other general counseling and advice on contraception Category: Medical (2) Anxiety about health: Code(s): R45.89 - Other symptoms and signs involving emotional state Category: Medical Plan Vasectomy was discussed at length; risks and benefits. All questions were answered. Consent obtained. Prescriptions provided; discussed bringing prescriptions to office day of procedure. Discussed semen analysis. Will schedule for in office vasectomy. Follow-up per doctor's orders; or sooner with any issues, concerns, and or questions. Medications: New acetaminophen-codeine 300-30 mg 1 tab PO Q8H 9 tabs 0RF 3 days R45.89 - Other symptoms and signs involving emotional state diazepam Take medication after arrival at office 2 mg PO BID PRN 2 tabs 0RF anxiety 1 day R45.89 - Other symptoms and signs involving emotional state Patient Instructions: The patient had an opportunity to ask questions regarding the treatment plan. All questions were answered. Physical exam, labs, and imaging were discussed and reviewed in detail. As well as risks, benefits, and discussion of treatment choices. No major barriers to understanding were identified. The patient expressed understanding and agreement with the above treatment plan. The patient was made aware they should contact our office by phone for worsening of their current condition, the appearance of new symptoms, or with any questions or concerns. Compliance is encouraged with any medications and follow up testing that is ordered. It is a privilege to be allowed the opportunity to participate in? your urological care.? Again, if you have any questions or concerns If you have any questions or concerns please do not hesitate to contact me. The office is [phone]. This note is constructed using voice recognition software. While every effort has been made to ensure accuracy automatic die cutting machine operator errors may have been included. Yours sincerely, HERIBERTO Busby Coding Level of Care Code New Pt Level 4 (69816) Diagnoses Vasectomy evaluation Z30.09 Anxiety about health R45.89
== END 2024-06-27 09:02 | disposition home or self-care (01) ==
PROVIDERS: PCP Nurse Practitioner Family; Visit Provider Nurse Practitioner Family
DX: Z30.09 Encounter for other general counseling and advice on contraception (principal); R45.89 Other symptoms and signs involving emotional state
CPT/HCPCS: 99204

== ENCOUNTER → 2024-06-27 08:03 | Outpatient (BNVA) | payer BC, SELFPAY | PROVIDERS: PCP Nurse Practitioner Family; Visit Provider Nurse Practitioner Family ==

== ENCOUNTER → 2024-07-26 14:38 | Outpatient (BNVA) | payer BC, SELFPAY | PROVIDERS: PCP Nurse Practitioner Family; Visit Provider Urology | DX: R45.89 Other symptoms and signs involving emotional state (principal); Z30.09 Encounter for other general counseling and advice on contraception; Z30.2 Encounter for sterilization | CPT/HCPCS: 55250; J2003 ==

== ENCOUNTER 2025-06-06 08:33 | Outpatient (REF) | payer BC, SELFPAY ==
[2025-06-06 10:09] LABS: MANUAL DIFF FLAG NO
[2025-06-06 10:23] LABS: Hematocrit 42.0 % (42.0-52.0); Hemoglobin 14.3 g/dl (14.0-18.0); Imm Gran Abs Auto 0.02 X10*3/uL (0.00-0.03); Imm Gran Pct Auto 0.4 % (0.0-0.4); Lymphocytes Absolute Auto 1.5 X10*3/uL (1.2-4.9); Mean Corpuscular HGB Conc 34.0 g/dl (31.0-36.0); Mean Corpuscular Hemoglobin 29.3 pg (27.0-33.0); Mean Corpuscular Volume 86.1 fL (80.0-98.0); NRBC Abs Auto 0.000 X10*3/uL (0.0-0.012); NRBC Pct Auto 0.0 /100WBC (0.0-0.2); Platelet Count 249 X10*3/uL (160-400); Red Blood Count 4.88 X10*6/uL (4.60-5.80); White Blood Count 4.5 X10*3/uL (4.8-10.8)
[2025-06-06 10:31] LABS: Appearance Urine Clear; Glucose Urine UA Negative (Negative); PH 6.0 (5.0-9.0); Specific Gravity - Urine 1.025 (1.005-1.025)
[2025-06-06 11:04] LABS: Alanine Aminotransferase 41 U/L (0-40); Albumin Level 4.8 g/dL (3.5-5.0); Alkaline Phosphatase 65 U/L (39-117); Anion Gap 11 (12-20); Aspartate Amino Transferase 27 U/L (5-37); Blood Urea Nitrogen 21 mg/dL (9-16); Calcium 9.6 mg/dL (8.4-10.2); Carbon Dioxide 27 mmol/L (22-29); Chloride 106 mmol/L (96-108); Cholesterol 196 mg/dL (<200); Estimated Glomerular Filt Rate 53; HDL Cholesterol 40 mg/dL (>40); Potassium 4.2 mmol/L (3.3-5.1); Sodium 140 mmol/L (135-145); Total Protein 7.0 g/dL (6.5-8.0); Triglycerides 68 mg/dL (<150)
== END 2025-06-06 08:34 | disposition home or self-care (01) ==
LOC: HO.HMGCLDS 08:33
PROVIDERS: PCP Nurse Practitioner Family; Visit Provider Nurse Practitioner Family
DX: I10 Essential (primary) hypertension (principal); Z00.00 Encounter for general adult medical examination without abnormal findings; Z13.21 Encounter for screening for nutritional disorder
CPT/HCPCS: 36415; 80053; 80061; 81003; 82306; 84443; 85025

== ENCOUNTER 2025-06-07 06:33 | Outpatient (REF) | payer BC, SELFPAY ==
[2025-06-07 12:22] LABS: Alanine Aminotransferase 39 U/L (0-40); Albumin Level 4.8 g/dL (3.5-5.0); Alkaline Phosphatase 65 U/L (39-117); Anion Gap 13 (12-20); Aspartate Amino Transferase 24 U/L (5-37); Blood Urea Nitrogen 22 mg/dL (9-16); Calcium 9.8 mg/dL (8.4-10.2); Carbon Dioxide 27 mmol/L (22-29); Chloride 104 mmol/L (96-108); Estimated Glomerular Filt Rate 56; Potassium 4.0 mmol/L (3.3-5.1); Sodium 140 mmol/L (135-145); Total Protein 7.1 g/dL (6.5-8.0)
[2025-06-09 04:41] LABS: HBS Num1 0.00 mIU/mL (0-7.99); HBc Num1 0.06 S/CO (0.00-0.79); Hepatitis A Antibody IgM 0.18 Index (0-0.79); ~Hepatitis A Antibody IgM Nonreactive (Nonreactive); ~Hepatitis B Surface Antibody NONREACTIVE (Nonreactive)
[2025-06-09 04:42] LABS: HBsAGNum1 0.45 S/CO (0.00-0.99); Hepatitis B Surface Antigen Negative (Negative); ~HepC Num1 0.13 S/CO (0.00-0.79); ~Hepatitis C Antibody Nonreactive (Nonreactive)
== END 2025-06-07 06:34 | disposition home or self-care (01) ==
LOC: HO.HMGCLDS 06:33
PROVIDERS: PCP Nurse Practitioner Family; Visit Provider Nurse Practitioner Family
DX: R74.8 Abnormal levels of other serum enzymes (principal)
CPT/HCPCS: 36415; 80053; 86704; 86706; 86709; 86803; 87340

== ENCOUNTER 2025-06-16 15:37 | Outpatient (AMB) | payer BC, SELFPAY ==
--- NOTE | 2025-06-16 15:39 | A.OFFPC_ITS ---
Vital Signs 06/16/25 15:41 Height 5 ft 9 in Weight 227 lb BMI 33.5 BP 118/68 Blood Pressure Location Lt brachial Position Sitting Respiration 16 Pulse 64 Pulse Source Pulse Oximeter Pulse Oximetry (%) 98 Oxygen Delivery Method Room Air Intake Visit Reasons: PE Assistant Cross Country Coach Required: No Accompanied by: Self / Same As Patient Allergies No Known Allergies (No Known Allergies*) Allergy (Verified 06/16/25 15:59) Medication List - Last Reconciled 06/16/25 by HERIBERTO Cha levothyroxine 175 mcg PO DAILY Tobacco use date assessed: 06/16/25 Dental Screening Dental Screen Date: 06/16/25 Did you have a dental visit in the last 12 months?: Yes Did you have a dental problem in the last 6 months where you did not have access to dental care?: No Was dental information given to patient?: Patient has dentist HPI PE HPI Details History of Present Illness The patient is a 34 year old male presenting for a physical exam. He recently had labs which revealed an elevated creatinine level. He reports not drinking enough water. The patient reports feeling well. Health Maintenance The patient presented for a physical exam. Social History - The patient reports not drinking enoug h water. Review of Systems - Constitutional: Reports feeling well. - Cardiovascular: Denies chest pain. - Respiratory: Denies shortness of breat h. - Gastrointestinal: Denies abdominal kelvin n, blood in stool, constipation, and diarrhea. - Psychiatric: Denies suicidal or homici get ideation. Physical Exam General: Cooperative, healthy appearing, comfortable, no acute distress and well developed Orientation: Patient oriented x3 Limitations: No limitations Head: Normal to inspection Ears: Hearing grossly normal bilaterally Nose: Normal external nose present Face and sinus: Normal facial exam Eyes: Appearance normal, both eyes and all related structures Neck: Normal visual inspection and Yes full ROM Respiratory: Normal respiratory effort and able to speak in complete sentences. Clear to auscultation bilaterally Cardiovascular: Regular rate and rhythm. Normal S1 and S2, faint systolic murmur GI: Normal to inspection. Soft to palpation and nontender : testicles without masses/lesions and no hernias appreciated Skin: No rashes or lesions noted Neuro: Patient oriented x3 Extremities: Normal to inspection Results - Labs: Recent labs showed an elevated c reatinine. Plan 1. Elevated Creatinine The patient's creatinine was noted to be elevated on recent labs, which is suspected to be from dehydration due to his low water intake. He has been i nstructed to increase his water consumption, and labs will be repeated. 2. Systolic Murmur A systolic murmur was detected on examination today. An echocardiogram will be ordered for further evaluation. 3. Encounter for general adult medical e xamination with abnormal findings Z00.01 Discussion Notes I discussed with the patient that his recent labs showed a slightly elevated creatinine, likely due to dehydration from not drinking enough water. I advised him to increase his water intake before we repeat the labs. I also informed him about the systolic murmur found during the exam and that we will order an echocardiogram for further assessment. His lungs were clear and the rest of the exam was benign. Patient Instructions - Your recent lab work showed a slightly elevated creatinine level, which may be due to dehydration. - Please drink significantly more water before your next lab test. - A heart murmur was found during your e xam today, and we will schedule an echo cardiogram (an ultrasound of your heart) to evaluate it further. [facility] Medical History Hypothyroid Tinea versicolor Surgical History History of tonsillectomy H/O thyroidectomy Family History Mother COPD (chronic obstructive pulmonary disease) Smoker Alcoholic Bipolar 1 disorder Substance use disorder Mental health disorder Father No problems noted. Social History Housing: House Alcohol intake: current Alcohol intake frequency: a few times a month Patient Tobacco Use Status: Never used Tobacco e-Cigarette/Vaping Use: Never Used Second Hand Smoke Exposure: No service: No Current occupational status: employed Current occupation: teacher Current occupational exposures/hazards: Yes Cognitive needs: No Hearing needs: No Vision needs: No Questionnaire PHQ-9 Over the last 2 weeks, how often have you been bothered by any of the following problems? 1. Little interest or pleasure in doing things: not at all 2. Feeling down, depressed, or hopeless: not at all 3. Trouble falling or staying asleep, or sleeping too much: not at all 4. Feeling tired or having little energy: not at all 5. Poor appetite or overeating: not at all 6. Feeling bad about yourself - or that you are a failure or have let yourself or your family down: not at all 7. Trouble concentrating on things, such as reading the newspaper or watching television: not at all 8. Moving or speaking so slowly that other people could have noticed. Or the opposite - being so fidgety or restless that you have been moving around a lot more than usual: not at all 9. Thoughts that you would be better off or of hurting yourself in some way: not at all Total score: 0 Depression Screening Interpretation: Negative Depression Screening Done: Yes 04670 - PHQ-9 Billing: Yes Source: Developed by Drs. Nii Johnson, Nalini Dinh, Dionisio Arias and colleagues, with an educational bennett from [employer]. Thrive Questionnaire Date Thrive assessed: 01/01/24 I am a: Patient What is your living situation today?: I have a steady place to live Within the past 12 months, did the food you bought not last and you didn't have the money to get more?: Never true Within the past 12 months, did you worry whether your food would run out before you got money to buy more?: Never true Do you have trouble paying for medicines?: No Do you have trouble getting transportation to medical appointments?: No Do you have trouble paying your heating and electricity bill?: No Do you have trouble taking care of your child, family member or friend?: No Do you have trouble with day-to-day activities such as bathing, preparing meals, shopping, managing finances, etc.?: No Are you currently unemployed and looking for a job?: No Are you interested in more education?: No Please select the resources that you would like help with: None Currently or been in a relationship where the following occur: No concerns reported THRIVE Score: 0 AUDIT C Alcohol Use Questionnaire (AUDIT-C) 1. How often do you have a drink containing alcohol?: Monthly or less 2. How many drinks containing alcohol do you have on a typical day when you are drinking?: 3 or 4 3. How often do you have six or more drinks on one occasion?: Less than monthly Total Score: 3 Score Reviewed/Action Taken: Yes NKECHI-7 AMB Questionnaire NKECHI-7 Date NKECHI - 7 assessed: 06/16/25 Feeling nervous, anxious, or on edge: 0 = Not at all Not being able to stop or control worryin = Not at all Worrying too much about different things: 0 = Not at all Trouble relaxin = Not at all Being so restless that it is hard to sit still: 0 = Not at all Becoming easily annoyed or irritable: 0 = Not at all Feeling afraid as if something awful might happen: 0 = Not at all Total NKECHI-7 score (0-4 normal; 5-9 mild; 10-14 moderate; 15-21 severe): 0 Source: Developed by Drs. Nii Johnson, Nalini Dinh, Dionisio Arias and colleagues, with an educational bennett from [employer]. NKECHI-7 Assessment Billing NKECHI-7 Assessment Tool: NKECHI-7 Assessment 02001 Physical exam (Primary Care) Vital Signs: Last Vital Signs Pulse 64 06/16/25 15:41 Resp 16 06/16/25 15:41 BP 118/68 06/16/25 15:41 Pulse Ox 98 06/16/25 15:41 Oxygen Delivery Method Room Air 06/16/25 15:41 BMI result Body Mass Index 33.5 Tobacco/Smoking Status: Tobacco use Status Tobacco use date assessed 06/16/25 06/16/25 15:47 Patient Tobacco Use Status Never used Tobacco 06/16/25 15:47 e-Cigarette/Vaping Use Never Used 06/16/25 15:47 PHQ-9: PHQ-9 Score PHQ-9: Total score 0 06/16/25 15:47 Depression Screening Interpretation: Negative Thrive Assessment: Date of Thrive Assessment Date Thrive assessed 01/01/24 06/16/25 15:47 Currently or been in a relationship where the following occur: No concerns reported Coding Level of Care Code Est Pt Level 3 (45343) Est Pt Prev Care 18-39y(71960) Diagnoses Elevated serum creatinine R79.89 Systolic murmur R01.1 Encounter for routine adult physical exam with abnormal findings Z00.01 Additional Codes NKECHI-7 Assessment Billing - NKECHI-7 Assessment Tool: NKECHI-7 Assessment 63123 ([id number]) PHQ-9 - 15319 - PHQ-9 Billing: Yes ([id number]) Assessment & Plan Assessment & Plan (1) Elevated serum creatinine: Code(s): R79.89 - Other specified abnormal findings of blood chemistry Category: Medical (2) Systolic murmur: Code(s): R01.1 - Cardiac murmur, unspecified Category: Medical (3) Encounter for routine adult physical exam with abnormal findings: Code(s): Z00.01 - Encounter for general adult medical examination with abnormal findings Category: Medical Plan . Orders: Orders Comprehensive [place]. Panel Fast 06/06/25 Z00. - Encounter for general adult medical examination without abnormal findings Lipid Panel 06/06/25 Z00. - Encounter for general adult medical examination without abnormal findings UA CC w/rflx Micro + Cult 06/06/25 Z00. - Encounter for general adult medical examination without abnormal findings Vitamin D 25-OH Total 06/06/25 Z00.00 - Encounter for general adult medical examination without abnormal findings CA echo transthoracic complete Today R01.1 - Cardiac murmur, unspecified Complete Blood Count Auto Diff 06/06/25 Z00.00 - Encounter for general adult medical examination without abnormal findings TSH reflex Free T4 06/06/25 Z00.00 - Encounter for general adult medical examination without abnormal findings Comprehensive Met. Panel 3 Weeks R79.89 - Other specified abnormal findings of blood chemistry
[2025-06-16 15:41] VITALS: BP 118/68; PULSE 64; RESP 16; O2SAT 98; BMI 33.5
== END 2025-06-16 16:23 | disposition home or self-care (01) ==
LOC: HO.HMCC 15:38
PROVIDERS: PCP Nurse Practitioner Family; Visit Provider Nurse Practitioner Family
DX: R79.89 Other specified abnormal findings of blood chemistry (principal); R01.1 Cardiac murmur, unspecified; Z00.01 Encounter for general adult medical examination with abnormal findings

== ENCOUNTER → 2025-06-16 15:37 | Outpatient (BNVA) | payer BC, SELFPAY | PROVIDERS: PCP Nurse Practitioner Family; Visit Provider Nurse Practitioner Family | DX: Z13.31 Encounter for screening for depression (principal); Z13.39 Encounter for screening examination for other mental health and behavioral disorders | CPT/HCPCS: 96127 ==